=== PATIENT | female | born 1960 | race African-American/Black ===

== ENCOUNTER 2019-01-08 13:57 | Inpatient (IN) | payer MEDICAID ==
[~2019-01-08] VITALS: Ht 167.6 cm; Wt 52.2 kg
[~2019-01-08 13:57] MED LIST: CYCL5TAB PO; DIPH25CA83 PO; TRIA1CAP6 PO
[2019-01-08] MEDS ORDERED: SODIUM CHLORIDE 0.9% 1,000 ML IV ONE (16:37)
[2019-01-08] MEDS ORDERED: MORPHINE SULFATE 4 MG/ML CPJ (NOT FOR IM USE) IV STA (16:37)
[2019-01-08] MEDS ORDERED: ONDANSETRON HCL 4MG/2ML INJ IV STA (16:37)
[2019-01-08 17:08] LABS: BASOPHILS % 0.7 % (0.0-2.0); EOSINOPHILS % 0.7 % (0.0-5.0); HEMATOCRIT. 39.9 % (36.0-48.0); HEMOGLOBIN. 13.5 g/dL (12.0-16.0); LYMPHOCYTES % 18.7 % (20.0-50.0); MEAN CORPUSCULAR HEMOGLOBIN 31.3 pg (28.0-32.0); MEAN CORPUSCULAR VOLUME 92.6 fL (81.0-99.0); MEAN PLATELET VOLUME 6.8 fl (7.4-10.4); MONOCYTES % 6.4 % (2.0-8.0); NEUTROPHILS % 73.5 % (40.0-76.0); PLATELET 292 x1000/uL (130-400); RED BLOOD CELL COUNT 4.31 mill/uL (4.2-5.4); RED CELL DISTRIBUTION WIDTH 14.1 % (11.6-14.6)
[2019-01-08 17:12] LABS: CHLORIDE 107 mEq/L (98-107)
[2019-01-08 17:13] LABS: CLARITY URINE CLEAR (CLEAR); COLOR URINE YELLOW (YELLOW); KETONES URINE 1+ (NEGATIVE); LEUKOCYTE ESTERASE URINE NEGATIVE (NEGATIVE); NITRITE URINE NEGATIVE (NEGATIVE); OCCULT BLOOD URINE NEGATIVE (NEGATIVE); PROTEIN URINE NEGATIVE (NEGATIVE); SPECIFIC GRAVITY URINE 1.019 (1.005-1.030); UROBILINOGEN URINE 0.2 E.U./dL (0.2-1.0)
[2019-01-08 17:20] LABS: INR 0.9; PROTHROMBIN TIME 9.7 sec (9.6-11.0)
[2019-01-08] MEDS ORDERED: KETOROLAC 30MG/ML VIAL IV ONE (20:15)
[2019-01-08] MEDS ORDERED: CLONIDINE 0.2MG TABLET PO ONE (20:15)
[2019-01-08] MEDS ORDERED: KETOROLAC 15MG/ML VIAL IV ONE (20:30)
[2019-01-08] MEDS ORDERED: MORPHINE SULFATE 4 MG/ML CPJ (NOT FOR IM USE) IV ONE (22:30)
[2019-01-08] MEDS ORDERED: MAGNESIUM CITRATE 300ML SOLUTION PO ONE (23:30)
[2019-01-09 04:00] VITALS: BP 111/66
[2019-01-09] MEDS ORDERED: NAPR220C15 PO (04:42)
[2019-01-09] MEDS ORDERED: ONDANSETRON HCL 4MG/2ML INJ IV PRN (06:00)
[2019-01-09] MEDS ORDERED: NON FORMULARY PATIENT HOME MED XX SCH (06:00)
[2019-01-09] MEDS: MORPHINE SULFATE 2 MG/ML CPJ (NOT FOR IM USE) IV PRN ×3 (06:42→22:43)
[2019-01-09] MEDS: DEXT 5%/0.45% NACL 1000ML 1,000 ML IV SCH ×2 (07:28→18:03)
[2019-01-09 08:00] VITALS: BP 121/69
[2019-01-09] MEDS: ENOXAPARIN 40MG/0.4ML SYR SUBCUT SCH (08:40)
[2019-01-09] MEDS: FAMOTIDINE 20MG/2ML VIAL IV SCH (08:40)
[2019-01-09 12:00] VITALS: BP 123/77
[2019-01-09 12:40] LABS: HEMATOCRIT. 34.9 % (36.0-48.0); HEMOGLOBIN. 11.6 g/dL (12.0-16.0); MEAN CORPUSCULAR HEMOGLOBIN 30.9 pg (28.0-32.0); MEAN CORPUSCULAR VOLUME 92.9 fL (81.0-99.0); PLATELET 252 x1000/uL (130-400); RED BLOOD CELL COUNT 3.76 mill/uL (4.2-5.4); RED CELL DISTRIBUTION WIDTH 14.1 % (11.6-14.6)
[2019-01-09 13:36] LABS: PLATELET ESTIMATE NORMAL
[2019-01-09] MEDS ORDERED: MAGNESIUM HYDROXIDE 400MG/5ML 30ML UDC PO PRN (14:30)
[2019-01-09] MEDS ORDERED: BISACODYL 10MG SUPP PR PRN (14:30)
[2019-01-09 16:00] VITALS: BP 124/77
[2019-01-09] MEDS: DOCUSATE SODIUM 100MG CAPSULE PO SCH (18:03)
[2019-01-09 20:00] VITALS: BP_SYST 126; BP_SYST 137; BP_DIAS 84; BP_DIAS 98
[2019-01-10] VITALS: BP 158/97
[2019-01-10] MEDS: MORPHINE SULFATE 2 MG/ML CPJ (NOT FOR IM USE) IV PRN ×5 (03:57→22:08)
[2019-01-10 04:03] VITALS: BP 169/89
[2019-01-10 08:00] VITALS: BP 142/85
[2019-01-10] MEDS: FAMOTIDINE 20MG/2ML VIAL IV SCH (08:40)
[2019-01-10] MEDS: DOCUSATE SODIUM 100MG CAPSULE PO SCH ×2 (08:40→16:24)
[2019-01-10] MEDS: ENOXAPARIN 40MG/0.4ML SYR SUBCUT SCH (08:46)
[2019-01-10 12:00] VITALS: BP 135/78
[2019-01-10] MEDS: DEXT 5%/0.45% NACL 1000ML 1,000 ML IV SCH ×2 (12:00→15:19)
[2019-01-10 16:00] VITALS: BP 151/85
[2019-01-10 20:00] VITALS: BP 152/90
[2019-01-11] VITALS (7 sets, daily range): BP systolic 124–184; BP diastolic 65–99
[2019-01-11] MEDS: DEXT 5%/0.45% NACL 1000ML 1,000 ML IV SCH ×3 (03:24→18:12)
[2019-01-11] MEDS: MORPHINE SULFATE 2 MG/ML CPJ (NOT FOR IM USE) IV PRN ×3 (05:25→18:45)
[2019-01-11] MEDS: FAMOTIDINE 20MG/2ML VIAL IV SCH (08:28)
[2019-01-11] MEDS: ENOXAPARIN 40MG/0.4ML SYR SUBCUT SCH (08:29)
[2019-01-11] MEDS: DOCUSATE SODIUM 100MG CAPSULE PO SCH ×2 (08:29→17:22)
[2019-01-11] MEDS ORDERED: CLONIDINE 0.1MG TABLET PO NR (17:45)
[2019-01-11] MEDS ORDERED: AMLODIPINE 10MG TABLET PO SCH (17:45)
== END 2019-01-11 20:09 | disposition home or self-care (01) | DRG 254 ==
LOC: ER 13:57 → ENRESERV 01-09 03:15 → 6EST 01-09 03:57
PROVIDERS: ADMIT Internal Medicine; ATTEND Internal Medicine
DX: K59.00 Constipation, unspecified (principal); N17.9 Acute kidney failure, unspecified; E11.9 Type 2 diabetes mellitus without complications; N13.30 Unspecified hydronephrosis; F17.210 Nicotine dependence, cigarettes, uncomplicated; I10 Essential (primary) hypertension; Z85.048 Personal history of other malignant neoplasm of rectum, rectosigmoid junction, and anus; Z92.21 Personal history of antineoplastic chemotherapy; Z92.3 Personal history of irradiation; Z90.49 Acquired absence of other specified parts of digestive tract
CPT/HCPCS: 36415; 74018; 74176; 80048; 82378; 99285; J1650; J1885; J2270; J2405; J3490; J7030

== ENCOUNTER 2022-12-16 02:49 | Inpatient (IN) | payer MEDICAID ==
[~2022-12-16] VITALS: Ht 157.5 cm; Wt 47.2 kg
[~2022-12-16 02:49] MED LIST changes: -CYCL5TAB PO; -DIPH25CA83 PO; +NAPR220C15 PO; -TRIA1CAP6 PO
[2022-12-16] MEDS ORDERED: MAGNESIUM 2G PREMIX 50ML IV NR (05:45)
[2022-12-16] MEDS ORDERED: IPRATROPIUM/ALBUTEROL 0.5-3(2.5)MG/3ML NEB HHN NR (05:45)
[2022-12-16] MEDS ORDERED: METHYLPREDNISOLONE SOD SUCC 125 MG/2 ML VIAL IV NR (05:45)
[2022-12-16 06:18] LABS: CHLORIDE 108 mEq/L (98-107)
[2022-12-16] MEDS ORDERED: SODIUM CHLORIDE 0.9% 1,000 ML IV ONE (06:30)
[2022-12-16 06:35] LABS: BASOPHILS % 0.6 % (0.0-2.0); EOSINOPHILS % 1.6 % (0.0-5.0); HEMATOCRIT. 41.9 % (36.0-48.0); HEMOGLOBIN. 13.9 g/dL (12.0-16.0); LYMPHOCYTES % 29.3 % (20.0-50.0); MEAN CORPUSCULAR HEMOGLOBIN 30.6 pg (28.0-32.0); MEAN CORPUSCULAR VOLUME 92.4 fL (81.0-99.0); MEAN PLATELET VOLUME 7.8 fl (7.4-10.4); MONOCYTES % 8.1 % (2.0-8.0); NEUTROPHILS % 60.4 % (40.0-76.0); PLATELET 268 x1000/uL (130-400); RED BLOOD CELL COUNT 4.53 mill/uL (4.2-5.4); RED CELL DISTRIBUTION WIDTH 13.9 % (11.6-14.6)
[2022-12-16] MEDS ORDERED: SODIUM CHLORIDE 0.9% 500 ML IV ONE (07:15)
[2022-12-16 08:05] VITALS: BP 154/94
[2022-12-16] MEDS ORDERED: IPRATROPIUM/ALBUTEROL 0.5-3(2.5)MG/3ML NEB HHN PRN (11:30)
[2022-12-16 11:52] VITALS: BP 150/84
[2022-12-16] MEDS ORDERED: IPRATROPIUM/ALBUTEROL 0.5-3(2.5)MG/3ML NEB HHN SCH (12:00)
[2022-12-16] MEDS ORDERED: BUDESONIDE 0.5MG/2ML NEB HHN SCH (12:00)
[2022-12-16] MEDS ORDERED: CLONIDINE 0.1MG TABLET PO PRN (14:00)
[2022-12-16] MEDS ORDERED: ONDANSETRON HCL 4MG/2ML INJ IV PRN (14:00)
[2022-12-16] MEDS ORDERED: ACETAMINOPHEN 325MG TABLET PO PRN (14:00)
[2022-12-16] MEDS: PREDNISONE 20MG TABLET PO SCH ×2 (15:20→20:11)
[2022-12-16] MEDS: ENOXAPARIN 30MG/0.3ML SYR SUBCUT SCH (15:20)
[2022-12-16 16:00] VITALS: BP 119/73
[2022-12-16 20:00] VITALS: BP 131/102
[2022-12-16] MEDS ORDERED: POTASSIUM CHLORIDE 20MEQ TABLET SR PO NR (21:00)
[2022-12-16 21:51] LABS: CREATINE KINASE MB FRACTION 3.7 ng/mL (0.5-3.6)
[2022-12-17] VITALS: BP 165/108
[2022-12-17 01:44] LABS: CREATINE KINASE MB FRACTION 4.2 ng/mL (0.5-3.6)
[2022-12-17 04:00] VITALS: BP 154/89
[2022-12-17 06:51] LABS: HEMATOCRIT. 35.4 % (36.0-48.0); LYMPHOCYTES % 12.2 % (20.0-50.0); MEAN CORPUSCULAR VOLUME 91.5 fL (81.0-99.0); MEAN PLATELET VOLUME 7.1 fl (7.4-10.4); MONOCYTES % 4.7 % (2.0-8.0); NEUTROPHILS % 82.1 % (40.0-76.0); PLATELET 233 x1000/uL (130-400); RED BLOOD CELL COUNT 3.87 mill/uL (4.2-5.4); RED CELL DISTRIBUTION WIDTH 13.9 % (11.6-14.6)
[2022-12-17 07:00] LABS: CHLORIDE 112 mEq/L (98-107)
[2022-12-17] MEDS: IPRATROPIUM/ALBUTEROL 0.5-3(2.5)MG/3ML NEB HHN SCH ×3 (07:58→15:46)
[2022-12-17 08:00] VITALS: BP 159/85
[2022-12-17] MEDS: PREDNISONE 20MG TABLET PO SCH (09:30)
[2022-12-17 11:30] LABS: *AMPHETAMINES SCREEN URINE NEGATIVE (NEGATIVE); *BARBITURATES SCREEN URINE NEGATIVE (NEGATIVE); *BENZODIAZEPINES SCREEN URINE NEGATIVE (NEGATIVE); *COCAINE SCREEN URINE PRESUMTIVE POSITIVE (NEGATIVE); CANNABINOID URINE SCREEN PRESUMTIVE POSITIVE (NEGATIVE); METHADONE URINE SCREEN NEGATIVE (NEGATIVE); OPIATES URINE SCREEN NEGATIVE (NEGATIVE); PHENCYCLIDINE URINE SCREEN NEGATIVE (NEGATIVE)
[2022-12-17 12:00] VITALS: BP 125/67
[2022-12-17] MEDS: ENOXAPARIN 30MG/0.3ML SYR SUBCUT SCH (13:15)
[2022-12-17] MEDS ORDERED: P20 PO (15:00)
[2022-12-17] MEDS ORDERED: ALBU6.7H15 INH (15:00)
[2022-12-17 16:00] VITALS: BP 159/88
[2022-12-17 17:17] VITALS: BP 159/88
== END 2022-12-17 18:00 | disposition home or self-care (01) | DRG 133 ==
LOC: ER 02:49 → 7WST 06:00 → ENRESERV 07:10
PROVIDERS: ADMIT Internal Medicine; ATTEND Internal Medicine
DX: J96.00 Acute respiratory failure, unspecified whether with hypoxia or hypercapnia (principal); J68.0 Bronchitis and pneumonitis due to chemicals, gases, fumes and vapors; E87.20 Acidosis, unspecified; J44.1 Chronic obstructive pulmonary disease with (acute) exacerbation; N12 Tubulo-interstitial nephritis, not specified as acute or chronic; C18.9 Malignant neoplasm of colon, unspecified; F17.210 Nicotine dependence, cigarettes, uncomplicated; F14.90 Cocaine use, unspecified, uncomplicated; R07.89 Other chest pain; R56.9 Unspecified convulsions; E87.6 Hypokalemia; F19.10 Other psychoactive substance abuse, uncomplicated; I10 Essential (primary) hypertension; Z92.21 Personal history of antineoplastic chemotherapy; Z92.3 Personal history of irradiation; Z85.038 Personal history of other malignant neoplasm of large intestine
CPT/HCPCS: 36415; 71045; 80048; 80305; 82550; 82553; 83605; 83880; 84484; 85025; 85379; 93306; 93970; 94640; 99285; J1650; J2930; J3475; J7512; J7626

== ENCOUNTER 2024-11-01 16:04 | Emergency (ER) | payer MEDICAID ==
[~2024-11-01] VITALS: Ht 157.5 cm; Wt 50.0 kg
[~2024-11-01 16:04] MED LIST changes: +ALBU18HF2 IH; +DOCU-138 MT; -NAPR220C15 PO; +POLY17PO3 MT
[2024-11-01 16:07] VITALS: O2SAT 92
[2024-11-01 17:44] LABS: HEMATOCRIT. 45.4 % (36.0-48.0); HEMOGLOBIN. 14.7 g/dL (12.0-16.0); MEAN CORPUSCULAR HEMOGLOBIN 29.6 pg (28.0-32.0); MEAN CORPUSCULAR HGB CONC 32.5 g/dL (31.0-37.0); MEAN PLATELET VOLUME 6.8 fl (7.4-10.4); PLATELET 253 x1000/uL (130-400); RED BLOOD CELL COUNT 4.98 mill/uL (4.2-5.4); RED CELL DISTRIBUTION WIDTH 14.2 % (11.6-14.6); WHITE BLOOD COUNT 8.8 x1000/uL (4.5-11.0)
[2024-11-01 17:45] LABS: DIFFERENTIAL COMMENT 1
[2024-11-01 17:53] LABS: CHLORIDE 102 mEq/L (98-107); POTASSIUM 3.6 mEq/L (3.5-5.1); SODIUM 139 mEq/L (136-145)
[2024-11-01 17:54] LABS: CALCIUM 9.7 mg/dL (8.7-10.4); CARBON DIOXIDE 28 mEq/L (21-32)
[2024-11-01 17:59] LABS: CREATININE 1.1 mg/dL (0.6-1.0); GLUCOSE 153 mg/dL (70-105); UREA NITROGEN BLOOD 25 mg/dL (9-23)
[2024-11-01] MEDS: DIPHENHYDRAMINE 50MG/ML VIAL IV ONE (18:04)
[2024-11-01] MEDS: HYDRALAZINE HCL 25MG TABLET PO ONE (18:05)
[2024-11-01] MEDS: MORPHINE SULFATE 4 MG/ML INJ (FOR IV/IM USE) IV STA (18:05)
[2024-11-01] MEDS: CLONIDINE 0.1MG TABLET PO ONE (18:05)
[2024-11-01] MEDS: ONDANSETRON HCL 4MG/2ML INJ IV STA (18:05)
[2024-11-01 18:22] LABS: PLATELET ESTIMATE NORMAL
[2024-11-01] MEDS ORDERED: HYDR-4001 MT (19:26)
[2024-11-01 19:55] VITALS: BP 164/101; PULSE 89; RESP 18; TEMP 36.7; O2SAT 95
== END 2024-11-01 20:50 | disposition home or self-care (01) ==
LOC: ER 16:04
DX: R51.9 Headache, unspecified (principal); I10 Essential (primary) hypertension; J44.9 Chronic obstructive pulmonary disease, unspecified; Z86.59 Personal history of other mental and behavioral disorders
CPT/HCPCS: 80048; 85025; 36415; 70450; 96374; 96375; 99285; J1200; J2405; J2270; Z7610 ×3